=== PATIENT | male | born 1990 | race Caucasian/White ===

== ENCOUNTER 2016-10-11 19:26 | Emergency (ER) | payer OTHER ==
--- NOTE | 2016-10-11 20:28 | ED GENERAL ADULT ---
History of Present Illness General Chief Complaint: General Adult Stated Complaint: ?FEELS LIKE SOMETHING STUCK IN ESOPHAGUS Source: patient Exam Limitations: no limitations Vital Signs & Intake/Output Vital Signs & Intake/Output Vital Signs Date Time Temp Pulse Resp B/P B/P Pulse O2 O2 Flow FiO2 Mean Ox Delivery Rate 10/11 2138 97.1 97 18 119/73 100 Room Air 10/11 1932 98.5 100 22 122/71 97 Room Air Allergies Coded Allergies: prochlorperazine (From COMPAZINE) (ANXIOUS 10/11/16) Reconcile Medications No Known Home Medications Triage Note: PER PT FEELS LIKE SOMETHING IN STUCK IN THROAT, LAST TIME ABLE TO EAT OR DRINK 1845 LAST NIGHT. HAS HAPPENED IN PAST BUT ONLY CAME TO HOSPITAL X 2. Triage Nurses Notes Reviewed? yes HPI: Patient presents feeling like his food stuck in his lower esophagus since approximate 6 PM yesterday. Patient states this happens to him 5-10 times per year and has a supportive ER 3 times in the past for. Patient states it usually goes on its own her to the time she went to the emergency room they had to give him a shot of some medication before apparently went down and 1 time a funeral arranger added to an endoscopy. Patient was come in earlier today however he had to work. The symptoms have continued so he comes in tonight after he got to work. Patient states that whenever Gilbert comes right back up. Patient has been unable to tolerate anything by mouth. His globus sensation to his mid chest area. There is no radiation. There is no aggravating or mitigating factors. He rates it as 5 out of 10. Past History Travel History Traveled to [place] past 21 day No Medical History Any Pertinent Medical History? none EENT: NONE Cardiovascular: NONE Respiratory: NONE Gastrointestinal: NONE Hepatic: NONE Renal: NONE Musculoskeletal: NONE Psychiatric: NONE Endocrine: NONE Surgical History Surgical History: non-contributory Psychosocial History What is your primary language [place] Tobacco Use: Never used ETOH Use: occasional use Illicit Drug Use: denies illicit drug use Family History Hx Contributory? No Review of Systems Review of Systems Constitutional: Reports: no symptoms. EENTM: Reports: see HPI. Respiratory: Reports: no symptoms. Cardiovascular: Reports: no symptoms. GI: Reports: see HPI. Genitourinary: Reports: no symptoms. Musculoskeletal: Reports: no symptoms. Skin: Reports: no symptoms. Neurological/Psychological: Reports: no symptoms. Hematologic/Endocrine: Reports: no symptoms. Immunologic/Allergic: Reports: no symptoms. All Other Systems: Reviewed and Negative Physical Exam Physical Exam General Appearance: well developed/nourished, alert, awake, anxious, moderate distress Head: atraumatic, normal appearance Eyes: Bilateral: PERRL, EOMI. Ears, Nose, Throat: normal pharynx, normal ENT inspection, hearing grossly normal Neck: normal inspection, supple, full range of motion Respiratory: normal breath sounds, chest non-tender, no respiratory distress, lungs clear Cardiovascular: regular rate/rhythm, normal peripheral pulses Gastrointestinal: normal bowel sounds, soft, non-tender Back: normal inspection, normal range of motion Extremities: normal inspection, normal capillary refill, normal range of motion, no edema Neurologic/Psych: no motor/sensory deficits, awake, alert, oriented x 3, normal mood/affect Skin: intact, normal color, warm/dry Lymphatic: no anterior cervical stephon Core Measures ACS in differential dx? No CVA/TIA Diagnosis: No Severe Sepsis Present: No Septic Shock Present: No Progress Differential Diagnoses I considered the following diagnoses in my evaluation of the patient: [ ESOPHAGEAL IMPACTION, GLOBUS SENSATION] Plan of Care: Orders Procedure Date/time Status COMPREHENSIVE METABOLIC PANEL 10/12 2027 Complete CBC WITHOUT DIFFERENTIAL 10/12 2027 Complete Laboratory Tests 10/11/162035: Anion Gap 19 H, Estimated GFR > 60, BUN/Creatinine Ratio 28.6 H, Glucose 68, Calcium 8.7, Total Bilirubin 1.4 H, AST 23, ALT 44, Alkaline Phosphatase 52, Total Protein 7.9, Albumin 5.0, Globulin 2.9, Albumin/Globulin Ratio 1.7, CBC w Diff NO MAN DIFF REQ, RBC 5.42, MCV 83.9, MCH 28.5, RDW 12.9, MPV 7.9, Gran % 68.7, Lymphocytes % 20.5, Monocytes % 8.9, Eosinophils % 1.6, Basophils % 0.3, Absolute Granulocytes 5.2, Absolute Lymphocytes 1.6, Absolute Monocytes 0.7 H, Absolute Eosinophils 0.1, Absolute Basophils 0, PUBS MCHC 34.0 Diagnostic Imaging: Viewed by Me: Radiology Read. Discussed w/RAD: Radiology Read. CXR Impression: PATIENT: JENA SPAULDING PRESENT AGE: 25 PATIENT ACCOUNT NO: [id number] : 92 LOCATION: [facility] ORDERING PHYSICIAN: DERRICK COYNE MD SERVICE DATE: 10/11/16 EXAM TYPE: RAD - XRY- PORTABLE CHEST XRAY EXAMINATION: XR PORTABLE CHEST CLINICAL INFORMATION: Food impaction. COMPARISON: None. TECHNIQUE: Portable frontal view of the chest was obtained. FINDINGS: The lungs are well-expanded and clear without focal airspace consolidation. No pleural effusions or pneumothoraces are identified. Cardiomediastinal contours are within normal limits. Soft tissues are unremarkable. No acute osseous abnormality is identified. IMPRESSION: No acute pulmonary process. DICTATED BY: HOMER COREY MD DATE/TIME DICTATED:10/11/162154 BATTERY PLATE ASSEMBLER:DARLINE DATE/TIME TRANSCRIBED:10/11/162154 CONFIDENTIAL, DO NOT COPY WITHOUT APPROPRIATE AUTHORIZATION. <Electronically signed in Other Vendor System> SIGNED BY: HOMER COREY MD 10/11/162158 Initial ED EKG: none Comments: Case was discussed with Dr. MANDEL. Patient is high risk for perforation given the fact that the soft tissue impaction has been going on for greater than 24 hours. Patient has also been told in the past that his esophagus is "thin." These 2 complications increase the risk of perforation. The patient will require an endoscopy with CT surgery backup. The patient will be better suited at [facility] for treatment. Departure Departure Disposition: [facility] (ACUTE) Condition: Guarded Clinical Impression Primary Impression: Esophageal obstruction due to food impaction Referrals: EITAN SHEPARD,LOULOU Candelaria (PCP/Family) Departure Forms: Customer Survey General Discharge Information Prescriptions: Current Visit Scripts No Known Home Medications Critical Care Note Critical Care Note Critical Care Time: mins: (45 MIN)
[2016-10-11 20:54] LABS: ABSOLUTE BASOPHIL COUNT 0 /CUMM (0.0-0.2); ABSOLUTE EOSINOPHIL COUNT 0.1 /CUMM (0.0-0.7); ABSOLUTE GRANULOCYTE CT 5.2 /CUMM (1.4-6.5); ABSOLUTE LYMPH COUNT 1.6 /CUMM (1.2-3.4); ABSOLUTE MONOCYTE COUNT 0.7 /CUMM (0.10-0.60); BASOPHIL % 0.3 % (0.0-2.0); EOSINOPHIL % 1.6 % (0-5); GRANULOCYTE % 68.7 % (42.2-75.2); HEMATOCRIT 45.4 % (42-52); MEAN CORPUSCULAR HGB 28.5 PG (27.0-31.0); MEAN CORPUSCULAR VOLUME 83.9 FL (80.0-94.0); MEAN PLATELET VOLUME 7.9 FL (7.4-10.4); PLATELET COUNT 208 /CUMM (130-400); RBC DISTRIBUTION WIDTH 12.9 % (11.5-14.5); RED BLOOD CELL CT 5.42 /CUMM (4.70-6.10); WHITE BLOOD CELL COUNT 7.6 /CUMM (4.8-10.8)
[2016-10-11 21:39] VITALS: BP 119/73
--- NOTE | 2016-10-11 21:59 | RADIOLOGY REPORT ---
EXAMINATION: XR PORTABLE CHEST CLINICAL INFORMATION: Food impaction. COMPARISON: None. TECHNIQUE: Portable frontal view of the chest was obtained. FINDINGS: The lungs are well-expanded and clear without focal airspace consolidation. No pleural effusions or pneumothoraces are identified. Cardiomediastinal contours are within normal limits. Soft tissues are unremarkable. No acute osseous abnormality is identified. IMPRESSION: No acute pulmonary process.
== END 2016-10-11 23:13 | disposition short-term general hospital (02) ==
LOC: ERH 19:26
PROVIDERS: Emergency Medicine
DX: T18.108A Unspecified foreign body in esophagus causing other injury, initial encounter (principal)
CPT/HCPCS: 96372; 96374; J1610